=== PATIENT | male | born 1970 | race Hispanic/Latino ===

== ENCOUNTER 2019-06-30 18:36 | Emergency (ER) | payer MEDICAID ==
--- NOTE | 2019-06-30 20:21 | Emergency Department Report ---
ED Medical Clearance HPI - General Chief complaint: Medical Clearance Stated complaint: DELERIUM/PSYCHOSIS Time Seen by Provider: 06/30/19 20:08 Source: EMS Mode of arrival: Stretcher - History of Present Illness Initial comments: Patient is 48 years old male with history of paranoid schizophrenia and seizure. Patient brought to the emergency room from [facility] to rule out delirium. Patient admitted to the psychiatric facility for acute psychosis. In the emergency room patient is alert but not answering any questions appropriately. He stated that he seeing [employer]ose and he feels like he is [place]. Patient is jumping from one sentence to another sentence. Patient denied any fever or chills. He also denied any chest pain, abdominal pain, nausea or vomiting. MD Complaint: medical clearance request Allergies/Adverse reactions: Allergies Allergy/AdvReac Type Severity Reaction Status Date / Time No Known Allergies Allergy Unverified 06/30/19 19:43 ED Review of Systems ROS: Stated complaint: DELERIUM/PSYCHOSIS Other details as noted in HPI Comment: All other systems reviewed and negative Constitutional: denies: chills, fever Respiratory: denies: cough, shortness of breath Cardiovascular: denies: chest pain Gastrointestinal: denies: abdominal pain, nausea, vomiting Neurological: denies: headache, weakness ED Past Medical Hx - Past Medical History Previous Medical History?: Yes Hx Seizures: Yes Hx Psychiatric Treatment: Yes (schizophrenia) - Social History Smoking Status: Former Smoker Substance Use Type: None ED Physical Exam - General Limitations: Other General appearance: alert, in no apparent distress - Head Head exam: Present: atraumatic, normocephalic, normal inspection - Eye Eye exam: Present: normal appearance - ENT ENT exam: Present: normal exam, normal orophraynx, mucous membranes moist - Neck Neck exam: Present: normal inspection, full ROM. Absent: tenderness, meningismus, lymphadenopathy, thyromegaly - Respiratory Respiratory exam: Present: normal lung sounds bilaterally - Cardiovascular Cardiovascular Exam: Present: regular rate, normal rhythm, normal heart sounds - GI/Abdominal GI/Abdominal exam: Present: soft, normal bowel sounds. Absent: distended, tenderness, guarding, rebound, rigid, organomegaly, mass, bruit, pulsatile mass, hernia - Extremities Exam Extremities exam: Present: normal inspection, full ROM, normal capillary refill. Absent: pedal edema, calf tenderness - Back Exam Back exam: Present: normal inspection, full ROM, CVA tenderness (L) - Neurological Exam Neurological exam: Present: alert, CN II-XII intact, reflexes normal. Absent: motor sensory deficit - Psychiatric Psychiatric exam: Present: flat affect - Skin Skin exam: Present: warm, intact, normal color ED Course Vital Signs 06/30/19 06/30/19 19:44 19:54 Temperature 97.9 F Pulse Rate 86 Respiratory 18 18 Rate Blood Pressure 121/60 O2 Sat by Pulse 100 100 Oximetry ED Medical Decision Making - Lab Data Result diagrams: 06/30/19 20:22 06/30/19 20:22 - Radiology Data Radiology results: report reviewed - Medical Decision Making Patient is 48 years old male with history of paranoid schizophrenia and seizure. Patient brought to the emergency room from [facility] to rule out delirium. Patient admitted to the psychiatric facility for acute psychosis. In the emergency room patient is alert but not answering any questions appropriately. He stated that he seeing rainbow and he feels like he is [place]. Patient is jumping from one sentence to another sentence. Patient denied any fever or chills. He also denied any chest pain, abdominal pain, nausea or vomiting. Patient remained stable in the ER. Labs reviewed and is unremarkable. Chest x- ray is negative for acute finding. No evidence of infection at this moment. Patient vital signs stable and remained stable in the ER. Patient will be sent back to [facility] to finish his psychiatric treatment. ED Disposition Clinical Impression: Medical clearance for psychiatric admission Disposition: DC-01 TO HOME OR SELFCARE Is pt being admited?: No Condition: Stable Instructions: Medical Clearance for Psychiatric Care (ED) Additional Instructions: Patient is medically clear to be readmitted back to the psychiatric unit. Referrals: PRIMARY CARE, [Primary Care Provider] - 3-5 Days
[2019-06-30 20:37] LABS: Basophils # (Auto) 0.1 K/mm3 (0.0-0.1); Basophils % (Auto) 0.6 % (0.0-1.8); Eosinophils # (Auto) 0.2 K/mm3 (0.0-0.4); Eosinophils % (Auto) 2.3 % (0.0-4.3); Hematocrit 43.2 % (35.5-45.6); Hemoglobin 14.5 gm/dl (11.8-15.2); Lymphocytes # (Auto) 1.8 K/mm3 (1.2-5.4); Lymphocytes % (Auto) 17.4 % (13.4-35.0); Mean Corpuscular HGB Conc 34 % (32-34); Mean Corpuscular Volume 88 fl (84-94); Monocytes # (Auto) 0.8 K/mm3 (0.0-0.8); Monocytes % (Auto) 7.7 % (0.0-7.3); Platelet Count 223 K/mm3 (140-440); Red Cell Distribution Width 13.7 % (13.2-15.2)
[2019-06-30 20:52] LABS: BUN/Creatinine Ratio 20; Blood Urea Nitrogen 18 mg/dL (9-20); Calcium 9.5 mg/dL (8.4-10.2); Hemolysis Index 8
--- NOTE | 2019-06-30 20:54 | XRay Report ---
CHEST 1 VIEW 06/30/2019 8:40 PM INDICATION / CLINICAL INFORMATION: MAIN: Medical Clearance Psych; Pt from [place] on 1013, sitter has been sent with pt. Per EMS, pt sent to ED for acute delirium. COMPARISON: None available. FINDINGS: SUPPORT DEVICES: None. HEART / MEDIASTINUM: No significant abnormality. LUNGS / PLEURA: No significant pulmonary or pleural abnormality. No pneumothorax. ADDITIONAL FINDINGS: No significant additional findings. IMPRESSION: 1. No acute findings. Signer Name: Boy Olivares MD Signed: 06/30/2019 8:50 PM Workstation Name: [id number]
[2019-06-30 20:56] LABS: Albumin 4.2 g/dL (3.9-5); Bilirubin,Direct 0.2 mg/dL (0-0.2)
[2019-06-30 23:50] LABS: Bilirubin,Urine NEG (Negative); Blood,Urine NEG (Negative); Color,Urine Amber (Yellow); Mucus,Urine 1+ /HPF; Protein,Urine <15 mg/dL mg/dL (Negative)
[2019-06-30 23:58] LABS: Amphetamine Screen,Urine PRESUMPTIVE NEGATIVE; Benzodiazepines Screen,Urine PRESUMPTIVE NEGATIVE; Cannabinoid Screen,Urine PRESUMPTIVE NEGATIVE; Cocaine Screen,Urine PRESUMPTIVE NEGATIVE; Methadone Screen,Urine PRESUMPTIVE NEGATIVE; Opiate Screen,Urine PRESUMPTIVE NEGATIVE
[2019-07-01 13:38] VITALS: BP 133/75
== END 2019-07-01 02:07 | disposition home or self-care (01) ==
LOC: ED 18:36
DX: F23 Brief psychotic disorder (principal); G43.909 Migraine, unspecified, not intractable, without status migrainosus; Z04.6 Encounter for general psychiatric examination, requested by authority; Z87.891 Personal history of nicotine dependence
CPT/HCPCS: 36415; 71045; 80048; 80076; 80307; 80320; 81001; 84443; 85025; G0480